=== PATIENT | female | born 1990 | race American Indian/Alaskan Native ===

== ENCOUNTER 2019-05-19 02:40 | Emergency (ER) | payer SELFPAY ==
[2019-05-19 02:50] VITALS: BP 137/76
--- NOTE | 2019-05-19 03:29 | XRay Report ---
CHEST 1 VIEW [id number] INDICATION / CLINICAL INFORMATION: Chest Pain. COMPARISON: Left lower chest pain for one week, productive cough FINDINGS: SUPPORT DEVICES: None HEART / MEDIASTINUM: No significant abnormality. LUNGS / PLEURA: No significant pulmonary or pleural abnormality. No pneumothorax. ADDITIONAL FINDINGS: No significant additional findings. IMPRESSION: No significant acute abnormality Signer Name: Eric Shah MD Signed: 05/19/2019 3:24 AM Workstation Name: [id number]
== END 2019-05-19 04:45 | disposition left against medical advice (07) ==
LOC: ED 02:40
DX: R07.89 Other chest pain (principal); Z53.21 Procedure and treatment not carried out due to patient leaving prior to being seen by health care provider
CPT/HCPCS: 71045; 93005; 93010